=== PATIENT | male | born 1960 | race Caucasian/White ===

== ENCOUNTER → 2019-07-08 | Outpatient (CLI) | payer BC | END | disposition home or self-care (01) | LOC: CVU 08:14 | PROVIDERS: ATTEND Internal Medicine Cardiovascular Disease | DX: I34.0 Nonrheumatic mitral (valve) insufficiency (principal); I42.9 Cardiomyopathy, unspecified | CPT/HCPCS: 93306 ==

== ENCOUNTER 2020-07-02 08:24 | Outpatient (CLI) | payer BC | END 2020-07-02 23:59 | disposition home or self-care (01) | LOC: CVU 08:24 | PROVIDERS: ATTEND Registered Nurse | DX: I34.0 Nonrheumatic mitral (valve) insufficiency (principal); I42.9 Cardiomyopathy, unspecified; G47.33 Obstructive sleep apnea (adult) (pediatric); E78.5 Hyperlipidemia, unspecified; I11.9 Hypertensive heart disease without heart failure; I77.810 Thoracic aortic ectasia | CPT/HCPCS: 93306; 93356 ==